=== PATIENT | female | born 1980 | race Caucasian/White ===

== ENCOUNTER 2017-11-27 12:01 | Emergency (ER) | payer MEDICAID, OTHER ==
[2017-11-27 12:48] VITALS: BMI 24.7
[2017-11-27 13:47] VITALS: BP 115/76; RESP 18; O2SAT 99
--- NOTE | 2017-11-27 13:53 | ED PDOC ---
HPI: General Adult Time Seen by Provider: 11/27/17 13:40 Chief Complaint (Nursing): Abdominal Pain History Per: Other (Pt asymptomatic, no c/o at present time. Denies abd pain naisea vomiting or diarrhea. No fevr. Discussed with Dr. Peterson, seen upstairs in Ob. No need for further w/u) Past Medical History Vital Signs: Last Vital Signs Temp 98.5 F 11/27/17 13:46 Pulse 91 H 11/27/17 13:46 Resp 18 11/27/17 13:46 BP 115/76 11/27/17 13:46 Pulse Ox 99 11/27/17 13:46 - Family History Family History: States: Unknown Family Hx - Allergies Allergies/Adverse Reactions: Allergies Allergy/AdvReac Type Severity Reaction Status Date / Time No Known Allergies Allergy Verified 11/27/17 13:40 Physical Exam - Physical Exam Appears: Positive for: Non-toxic, No Acute Distress Skin: Positive for: Normal Color, Warm, DRY Gastrointestinal/Abdominal: Positive for: Bowel Sounds, Soft, Other (gravid). Negative for: Tenderness - ECG O2 Sat by Pulse Oximetry: 99 Disposition - Clinical Impression Clinical Impression: Normal exam - Patient ED Disposition Is Patient to be Admitted: No - Disposition Referrals: Courtney Romero MD [Primary Care Provider] - Disposition: Routine/Home Disposition Time: 13:53 Condition: FAIR Instructions: Gastroenteritis (ED)
[2017-11-27 21:54] VITALS: PULSE 92; TEMP 98.4
--- NOTE | 2017-11-28 07:51 | OBDCSUM ---
Datetime: 11/27/2017 13:08 Follow up at, Provider: main ER Follow up in weeks, Provider: [facility] in 1-2w Discharge Diagnosis Prov Other: diarrhea/prob viral gasrtoenteritits
--- NOTE | 2017-11-28 07:51 | OBHP ---
Datetime: 11/27/2017 12:35 IP Adm Impression: , intrauterine ; No Active Labor IP Chief Complaint Other: diarrhea IP Admit Plan Other: discharge to ER Admit Comment, IP Provider: co diarrhea this morning. IUp at 23+w GDMA2 from [facility] c/o diarrhea since 6am. No SROM. no VB. +FM Prenatla chart rev'd/case discussed with Dr Garay. POBGYNH: denies STD; G1 PMH: GDMA2 - on Glyburide took accuchck this am 87mg/dl PSH denies NKA PSOH: denies smoking ETOH drugs A: IUp at 23w diarrhea cleared by OB send to ER (late entry for Nov 27) Extremities - PN: Normal Abdomen - PN: Normal Lungs - PN: Normal Heart - PN: Normal HEENT - PN: Normal General - PN: Normal FHR - Baseline A Provider: + IP Hx Assessment: The History has been Reviewed and is Current EGA AdmitDate IP: 23.1 Vital Signs Provider: Reviewed; Within Normal Limits IP Chief Complaint: Other
== END 2017-11-27 14:28 | disposition home or self-care (01) ==
LOC: H.ER 12:01
DX: O26.892 Other specified pregnancy related conditions, second trimester (principal); O99.89 Other specified diseases and conditions complicating pregnancy, childbirth and the puerperium; Z3A.23 23 weeks gestation of pregnancy

== ENCOUNTER 2018-01-10 17:14 | Emergency (ER) | payer MEDICAID ==
[2018-01-10 18:46] VITALS: O2SAT 100
--- NOTE | 2018-01-10 19:41 | ED PDOC ---
HPI: General Adult Time Seen by Provider: 01/10/18 19:10 Chief Complaint (Nursing): Cough, Cold, Congestion History Per: Patient History/Exam Limitations: no limitations Onset/Duration Of Symptoms: Hrs, Gradual Have you had recent travel within the past 21 days to any of the following countries: [place], [place], [place] or [place]?: No Current Symptoms Are (Timing): Still Present Severity: Mild Recently: Seen In ED Additional History Per: Patient Additional Complaint(s): 37 y/o 28-week female here this evening complaining of nonproductive cough, rhinorrhea, fever, and ear pain. She also complains of lower rib pain and upper abdominal pain when coughing. Patient denies sick contacts or recent travel. She was seen by L&D this afternoon, cleared, and came to the ED for further evaluation. There are no other complaints at this time. Past Medical History Vital Signs: Last Vital Signs Temp 98.6 F 01/10/18 23:28 Pulse 121 H 01/10/18 23:28 Resp 20 01/10/18 23:28 BP 107/62 01/10/18 23:28 Pulse Ox 100 01/10/18 23:28 - Medical History PMH: No Chronic Diseases - Family History Family History: States: Unknown Family Hx - Immunization History Hx Tetanus Toxoid Vaccination: No Hx Influenza Vaccination: No Hx Pneumococcal Vaccination: No - Home Medications Home Medications: Ambulatory Orders Medication Instructions Recorded Acetaminophen [Pain Reliever] 500 mg PO Q4 #30 tablet 01/10/18 Oseltamivir Phosphate [Tamiflu] 75 mg PO BID 5 Days capsule 01/10/18 - Allergies Allergies/Adverse Reactions: Allergies Allergy/AdvReac Type Severity Reaction Status Date / Time No Known Allergies Allergy Verified 11/27/17 13:40 Review of Systems Constitutional: Positive for: Fever. Negative for: Chills ENT: Positive for: Ear Pain Cardiovascular: Positive for: Chest Pain Respiratory: Positive for: Cough Gastrointestinal: Positive for: Abdominal Pain. Negative for: Nausea, Vomiting Skin: Negative for: Rash Physical Exam - Reviewed Nursing Documentation Reviewed: Yes Vital Signs Reviewed: Yes - Physical Exam Appears: Positive for: Well, Non-toxic, No Acute Distress Head Exam: Positive for: ATRAUMATIC, NORMAL INSPECTION, NORMOCEPHALIC Skin: Positive for: Normal Color, Warm, DRY Eye Exam: Positive for: EOMI, Normal appearance, PERRL ENT: Positive for: Normal ENT Inspection Neck: Positive for: Normal, Painless ROM Cardiovascular/Chest: Positive for: Regular Rate, Rhythm Respiratory: Positive for: CNT, Normal Breath Sounds Gastrointestinal/Abdominal: Positive for: Normal Exam, Bowel Sounds, Soft, Other (Gravid Uterus) Back: Positive for: Normal Inspection Extremity: Positive for: Normal ROM Neurologic/Psych: Positive for: Alert, Oriented - ECG O2 Sat by Pulse Oximetry: 100 (RA) Pulse Ox Interpretation: Normal Medical Decision Making Medical Decision Making: Impression: flu-Like Illness Discussion: Patient is high risk and will be treated with Tamiflu. PAtient is well appearing, advised her to f/u w/ PMD in 1 - 2 days. Return precautions discussed. Scribe Attestation: Documented by Poonam Krishnamurthy, acting as a scribe for Ethan Ballard MD. Provider Scribe Attestation: All medical record entries made by the Scribe were at my direction and personally dictated by me. I have reviewed the chart and agree that the record accurately reflects my personal performance of the history, physical exam, medical decision making, and the department course for this patient. I have also personally directed, reviewed, and agree with the discharge instructions and disposition. Disposition - Clinical Impression Clinical Impression: Influenza-like symptoms - Patient ED Disposition Is Patient to be Admitted: No Doctor Will See Patient In The: Office Counseled Patient/Family Regarding: Diagnosis, Need For Followup, Rx Given - Disposition Referrals: Courtney Romero MD [Primary Care Provider] - Disposition: Routine/Home Disposition Time: 19:43 Condition: STABLE Prescriptions: Acetaminophen [Pain Reliever] 500 mg PO Q4 #30 tablet Oseltamivir Phosphate [Tamiflu] 75 mg PO BID 5 Days capsule Instructions: Flu, Adult (DC) Forms: [employer] (Slovenian)
[2018-01-10 23:29] VITALS: BP 107/62; PULSE 121; RESP 20; TEMP 98.6
--- NOTE | 2018-01-11 10:29 | OBHP ---
Datetime: 01/10/2018 18:10 IP Adm Impression: , intrauterine IP Admit Plan: Observation/Evaluation Admit Comment, IP Provider: Pt is a 37 y/o female G1PO with IUP at 29 wks sent from clinic for upper respiratory tract symptoms and GI distress x1 day. Pt reports having nonproductive cough, congestion , [place] and vomiting since last night. Denies fever. Was found to be tachycardic at 120 in the clini c. Currently denies n/v, sob, cp, le edema, headache, vaginal bleeding, lof, abdominal or pelvic pain . No sick contacts. Received flu shot this season. PNC: Seen at [facility]. GDM on metformin and glyburide. Blood glucose controlled. GBS + OBHx:none PMHX: none Allergies: none Meds: PNV, Metformin, Glyburide PE: General: Comfortable, alert and oriented, no distress. Occasional coughing fit Cardio: Tachycardic, regular rythm, no murmurs Lungs: CTABL, no rales, no wheezing, no use of accessory muscles Abdomen: Gravid, NT FHR: 144, reactive, no decels No contractions on tocometer Assessment: IUP at 29wks presenting with URI symptoms. Tachycardic. Plan: No signs of active labor. FHR observed, category 1. Pt will need further medicine workup. Pr egnancy stable from obgyn persepective. Discussed case with OB Attending, Dr. Ignacia Pickens, PGY1 EGA AdmitDate IP: 29.3 Vital Signs Provider: Reviewed Vital Signs Provider Details: Tachycardia IP Chief Complaint: Illness; Other
== END 2018-01-10 19:58 | disposition home or self-care (01) ==
LOC: H.EROB2 17:14 → H.ER 17:14
DX: R10.9 Unspecified abdominal pain (principal); O26.893 Other specified pregnancy related conditions, third trimester; O99.419 Diseases of the circulatory system complicating pregnancy, unspecified trimester; Z3A.29 29 weeks gestation of pregnancy; Z79.84 Long term (current) use of oral hypoglycemic drugs

== ENCOUNTER 2018-03-18 20:25 | Inpatient (IN) | payer MEDICAID ==
[2018-03-18 22:42] VITALS: BMI 25.4
[2018-03-18] MEDS ORDERED: Lactated Ringer's 1,000 ML IV SCH (22:45)
[2018-03-18] MEDS ORDERED: Oxytocin 30 units/LR 500ML 30 U/500 ML BAG IV SCH (22:45)
[2018-03-18 23:24] LABS: BASO # 0.1 K/uL (0.0-0.2); BASO % 0.5 % (0.0-2.0); EOS # 0.3 K/uL (0.0-0.7); EOS % 2.5 % (0.0-4.0); HEMOGLOBIN 12.6 g/dL (12.0-16.0); LYMPH # 2.4 K/uL (1.0-4.3); LYMPH % 21.5 % (20.0-40.0); MEAN CELL VOLUME 95.3 fl (81.0-99.0); MEAN CORPUSCULAR HEMOGLOBIN 32.5 pg (27.0-31.0); MEAN CORPUSCULAR HGB CONC 34.1 g/dL (33.0-37.0); MONO # 0.8 K/uL (0.0-0.8); MONO % 6.8 % (0.0-10.0); NEUT # 7.7 K/uL (1.8-7.0); NEUT % 68.7 % (50.0-75.0); NRBC % 0.1 % (0.0-0.0); RBC 3.88 Mil/uL (3.80-5.20); RED CELL DISTRIBUTION WIDTH 13.5 % (11.5-14.5); WHITE BLOOD COUNT 11.2 K/uL (4.8-10.8)
[2018-03-18 23:31] LABS: ALB/GLOB RATIO 1.1 (1.0-2.1); ALBUMIN 3.7 g/dL (3.5-5.0); ALT/SGPT 24 U/L (9-52); AST/SGOT 23 U/L (14-36); BLOOD UREA NITROGEN 8 mg/dl (7-17); CALCIUM 10.4 mg/dL (8.4-10.2); GFR AFRICAN-AMERICAN > 60; GFR NON-AFRICAN AMERICAN > 60
[2018-03-18] MEDS: Lactated Ringer's 1,000 ML IV SCH (23:54)
[2018-03-19 03:33] VITALS: O2SAT 100
--- NOTE | 2018-03-19 07:41 | OBADHP ---
Datetime: 03/19/2018 01:06 Pelvic Type - PN: Adequate Extremities - PN: Normal Abdomen - PN: Normal Back - PN: Normal Breast - PN: Normal Lungs - PN: Normal Heart - PN: Normal Thyroid - PN: Normal Neurologic - PN: Normal HEENT - PN: Normal General - PN: Normal FHR - Baseline A Provider: 130 Membranes, Provider: Intact Contraction Comments Provider: no Comments, ACOG Physical Exam: U/S: vertex GBS/HIV/RPR/HepB negative , Rubella immune Vital Signs Provider: Reviewed; Within Normal Limits IP Chief Complaint: Scheduled induction of labor NICHD Variability Prov Fetus A: Moderate 6-25bpm NICHD Accel Fetus A IP Provider: 15X15 FHR Category Provider Fetus A: Category I NICHD Decel Fetus A IP Provider: None Dilatation, Provider: close Effacement, Provider: high Station, Provider: thick Genitourinary Exam: Normal DTRs - PN: Normal EGA AdmitDate IP: 39.1 IP Adm Impression: Term, intrauterine IP Admit Plan: Admit to unit; Initiate labor induction protocol; Observation/Evaluation Datetime: 03/18/2018 23:45 Admit Comment, IP Provider: This is 37 y/o F, , IUP@39.0, JUANA 03/25/18 comes to the [facility] for OLIVE IOL due to AMA and DM. ROS unremarkable Denies LOF/BV/CTX, good FM PNC: [facility] PNI: Diabetes was dig around 13wks of GA HIV/RPR/hep B negatibe PMH: Polydactyly, AMA, B/l breast lumpectomy, DM PSH: Lumpectomy Allg: NKDA Meds: Metformin, ASA, PNV, Iron SH: Denies alcohol, smoking or drug use FH: Denies VS: Reviewed PE: As above A/P: 37 y/o F, , IUP@39.0, JUANA 03/25/18 comes to the [facility] for OLIVE IOL due to AMA and DM - Admit to L_D - Initiate Labor induction protocol - Labs - Cervidil - Glucose check - Serial reevaluations Case discussed with Dr. Turner --- Torres Huber, PGY-1 OB attending addendum Patient seen and examined by me. Agree with above assessment and plan. Glucose monitoring w/ sliding scale.
--- NOTE | 2018-03-19 07:57 | OBHP ---
Datetime: 03/19/2018 01:06 EGA AdmitDate IP: 39.1 (Annotations: Data stored by CPN on behalf of user) Datetime: 03/18/2018 23:45 Admit Comment, IP Provider: This is 37 y/o F, , IUP@39.0, JUANA 03/25/18 comes to the [facility] for OLIVE IOL due to AMA and DM. ROS unremarkable Denies LOF/BV/CTX, good FM PNC: [facility] PNI: Diabetes was dig around 13wks of GA HIV/RPR/hep B negatibe PMH: Polydactyly, AMA, B/l breast lumpectomy, DM PSH: Lumpectomy Allg: NKDA Meds: Metformin, ASA, PNV, Iron SH: Denies alcohol, smoking or drug use FH: Denies VS: Reviewed PE: As above A/P: 37 y/o F, , IUP@39.0, JUANA 03/25/18 comes to the [facility] for OLIVE IOL due to AMA and DM - Admit to L_D - Initiate Labor induction protocol - Labs - Cervidil - Glucose check - Serial reevaluations Case discussed with Dr. Turner --- Torres Huber, PGY-1 OB attending addendum Patient seen and examined by me. Agree with above assessment and plan. Glucose monitoring w/ sliding scale.
--- NOTE | 2018-03-19 09:21 | OBPN ---
Datetime: 03/19/2018 09:10 IP Progress Impression: Reassuring heart rate IP Informed Consent Obtain: Vaginal Delivery; Risks, Benefits and Alternatives Discussed IP Progress Plan: Augmentation; Anticipate Vaginal Delivery Pool Provider: Negative Membranes, Provider: Intact FHR - Baseline A Provider: 140 Presentation-Admit: Vertex IP Progress Note Comment: OB hospitalist note. Sign out rec'd 8am She feels fine. Cervidl came out in the bathroom - accucheck this morning 78mg/dl LAtent phas eof labor PLAN: discussion about IOL, meds, augmentatoin, risks/complicatoins, pain management...agreed to P itocin/SSE NICHD Accel Fetus A IP Provider: 15X15 FHR Category Provider Fetus A: Category I NICHD Variability Prov Fetus A: Moderate 6-25bpm Dilatation, Provider: 2 Effacement, Provider: 75 Station, Provider: -2 NICHD Decel Fetus A IP Provider: None Datetime: 03/19/2018 01:06 Contraction Comments Provider: no Vital Signs Provider: Reviewed; Within Normal Limits
[2018-03-19] MEDS: Lactated Ringer's 1,000 ML IV SCH ×2 (10:00→15:31)
[2018-03-19] MEDS ORDERED: Lactated Ringer's 1,000 ML IV SCH (13:45)
[2018-03-19] MEDS ORDERED: Lidocaine Hydrochloride 5 ML INJ ONE (14:59)
[2018-03-19] MEDS ORDERED: Fentanyl/Bupivacaine HCl 250 ML EPI ONE (15:15)
--- NOTE | 2018-03-19 17:44 | OBPN ---
Datetime: 03/19/2018 17:00 IP Progress Impression: Normal progression of labor; Reassuring heart rate IP Informed Consent Obtain: Vaginal Delivery; Risks, Benefits and Alternatives Discussed IP Procedures: Intrauterine Pressure Catheter IP Progress Plan: Continue present management; Augmentation; Anticipate Vaginal Delivery Pool Provider: Positive Membranes, Provider: Ruptured Amniotic Fluid Color, Provider: Clear Contraction Comments Provider: 2-4m FHR - Baseline A Provider: 140 IP Fetus A Comments: decels x 2 noted but good recovery and iwth each CTX Presentation-Admit: Vertex IP Progress Note Comment: She rec'd epidural and feels good/no pain. She was checked earlier and was 4cm. Active pahse of labor occ decels noted/difficulty moitoring CTX pattern PLAN: IUPC placed to better montior CTX intensity/freq Pitocin at 8miu/h NICHD Accel Fetus A IP Provider: 15X15 FHR Category Provider Fetus A: Category I NICHD Variability Prov Fetus A: Moderate 6-25bpm Dilatation, Provider: 6 Effacement, Provider: 100 Station, Provider: -1
[2018-03-19] MEDS ORDERED: Oxytocin 30 units/LR 500ML 30 U/500 ML BAG IV ONE (18:15)
[2018-03-19] MEDS ORDERED: Lidocaine 2% Inj (20ml) ONE (20:04)
[2018-03-20] MEDS ORDERED: Oxycodone/Acetaminophen 5/325 mg Tab PO PRN ×4 (00:11→04:14)
[2018-03-20] MEDS ORDERED: Lactated Ringer's 1,000 ML IV SCH (02:56)
[2018-03-20 06:39] LABS: BASO # 0.1 K/uL (0.0-0.2); BASO % 0.4 % (0.0-2.0); EOS % 0.1 % (0.0-4.0); HEMOGLOBIN 11.1 g/dL (12.0-16.0); LYMPH # 1.3 K/uL (1.0-4.3); LYMPH % 5.5 % (20.0-40.0); MEAN CELL VOLUME 95.6 fl (81.0-99.0); MEAN CORPUSCULAR HGB CONC 33.4 g/dL (33.0-37.0); MONO # 1.2 K/uL (0.0-0.8); NEUT # 21.1 K/uL (1.8-7.0); PLATELET COUNT 114 K/uL (130-400); RBC 3.47 Mil/uL (3.80-5.20); RED CELL DISTRIBUTION WIDTH 13.4 % (11.5-14.5); WHITE BLOOD COUNT 23.7 K/uL (4.8-10.8)
--- NOTE | 2018-03-20 07:25 | OBDS ---
DELIVERY PERSONNEL Delivery Doctor: Jamie Peterson DO Rn Complex Care: Yari Ricardo RN Anesthesiologist: Kash Resident: Ami Huber MATERNAL INFORMATION Delivery Anesthesia: Local; Epidural Medications in Delivery: Oxytocin Estimated Blood Loss (ml): 200 Placenta Cultured: No Maternal Complications: None Provider Comments: Over intact perineum, of live male at 23:35 pm, Weight 3005gm, 8/9 AP GAR. Right Anterior shoulder was delivered first in a controlled manner after head followed by intelligence specialist ior arm and body. No meconium was noted with amniotic fluid. was bulb suctioned nasopharygeall y and started crying spontaneously. Baby was placed on Mom for Skin to skin contact. Umbilical cord w as clampped and cut. Placenta was delivered intact after uterine massage and repair was done as above . EBL 200cc. Patient and baby remained stable in the delivery room OB Attending: Dr. Peterson --- Torres Huber, PGY-1 OB Hospitalist note: With PGY1, I was in attendance for delivey -agree with PGY1 note [facility] LABOR SUMMARY EDC: 03/25/2018 00:00 No. Babies in Womb: 1 Attempted: No Labor Anesthesia: Epidural LABOR INFORMATION Reason for Induction: Macrosomia Reason for Induction Other: GDM Onset of Labor: 03/19/2018 17:00 Complete Dilatation: 03/19/2018 21:10 Cervical Ripening Agents: Cervidil Oxytocin: Induction Group B Beta Strep: Negative Steroids Given: None Reason Steroids Not Administered: Not Applicable MEMBRANES Membranes Rupture Method: Artificial Rupture of Membranes: 03/19/2018 11:55 Length of Rupture (hrs): 11.67 Amniotic Fluid Color: Clear Amniotic Fluid Amount: Small Amniotic Fluid Odor: Normal STAGES OF LABOR Stage 1 hrs: 4 Stage 1 min: 10 Stage 2 hrs: 2 Stage 2 min: 25 Stage 3 hrs: 0 Stage 3 min: 37 Total Time in Labor hrs: 7 Total Time in Labor min: 12 VAGINAL DELIVERY Episiotomy: None Laceration Extension: Second Degree Laceration Type: Perineal Laceration Repair: Yes Laceration Repair Note: Repair of second degree perineal laceration with two 2-0 vicryl rapid and lo jocelyn lidocaine Initial Vag Sponge Count: 5 Final Vag Sponge Count: 5 Initial Vag Sharps Count: 3 Final Vag Sharps Count: 3 Sponge Count Correct: Yes Sharps Count Correct: Yes BABY A INFORMATION Infant Delivery Date/Time: 03/19/2018 23:35 Method of Delivery: Vaginal Born in Route : No : N/A Forceps: N/A Vacuum Extraction: N/A Shoulder Dystocia : No ASSISTED DELIVERY BABY A Station Vacuum/Forcep Apply: SHOULDER DYSTOCIA BABY A Delivery Date/Time: 03/19/2018 23:35 PRESENTATION/POSITION BABY A Presentation: Cephalic Cephalic Presentation: Vertex Vertex Position: Left Occipital Anterior Breech Presentation: N/A PLACENTA INFORMATION BABY A Placenta Delivery Time : 03/20/2018 00:12 Placenta Method of Delivery: Spontaneous Placenta Status: Delivered SCORES BABY A Heart Rate 1 min: >100 bpm Resp Effort 1 min: Good Cry Reflex Irritability 1 min: Cough or Sneeze or Pulls Away Muscle Tone 1 min: Some Flexion of Extremities Color 1 min: Body [place], Extremities Blue Resuscitation Effort 1 min: Tactile Stimulation SCORE 1 MIN: 8 Heart Rate 5 min: >100 bpm Resp Effort 5 min: Good Cry Reflex Irritability 5 min: Cough or Sneeze or Pulls Away Muscle Tone 5 min: Active Motion Color 5 min: Body [place], Extremities Blue Resuscitation Effort 5 min: Tactile Stimulation SCORE 5 MIN: 9 INFANT INFORMATION BABY A Gestational Age at Delivery: 39.1 Gestational Status: Term Outcome : Liveborn Infant Condition : Stable Infant Sex: Male IDENTIFICATION/MEDS BABY A ID Band Number: [id number] ID Band Location: Left Leg; Left Arm WEIGHT/LENGTH BABY A Birthweight (gms): 3005 Weight (lb): 6 Infant Weight (oz): 10 CORD INFORMATION BABY A No. Cord Vessels: 3 Nuchal Cord : N/A Cord Blood Taken: Yes Infant Suction: Nose ASSESSMENT BABY A Complications: None Physical Findings at Delivery: Caput Succedaneum Respirations: Appears Normal Mobile Marketing Specialist/ALS Called : No Infant Care By: Jamie Mike RN Transferred To: Remains with Mother
--- NOTE | 2018-03-20 07:27 | OBPN ---
Datetime: 03/19/2018 22:00 IP Progress Impression: Normal progression of labor; Non-reassuring heart rate IP Informed Consent Obtain: Vaginal Delivery IP Progress Plan: Continue present management FHR - Baseline A Provider: 130 IP Progress Note Comment: S: Patient was checked at 9 pm, patient was c/o pain but denies any nausea or vomiting O: Stable VS PE: fully dil A/P: Will continue with current management will start pushing Discussed with Dr. Peterson --- Torres Huber, PGY-1 OB Hospitalist note: Pt seen Mar 19 -agree with PGY1 note [facility]O Vital Signs Provider: Reviewed; Within Normal Limits NICHD Accel Fetus A IP Provider: 15X15 FHR Category Provider Fetus A: Category I NICHD Variability Prov Fetus A: Moderate 6-25bpm Dilatation, Provider: 10 Effacement, Provider: 100 Station, Provider: 1 NICHD Decel Fetus A IP Provider: None
[2018-03-20 09:12] LABS: BANDS 12 % (0-2); LYMPHOCYTE 7 % (20-50); MONOCYTE 4 % (0-10); NEUTROPHIL 76 % (42-75); PLATELET ESTIMATE DECREASED (NORMAL); REACTIVE LYMPHOCYTES 1 % (0-0); TOTAL CELLS COUNTED 100
[2018-03-20 09:13] LABS: HYPOCHROMIC SLIGHT
--- NOTE | 2018-03-20 10:11 | OBPPN ---
Datetime: 03/20/2018 06:09 PP Pain Prov: Within normal limits PP Nausea Prov: Denies PP Flatus Prov: No PP BM Prov: No PP Heart Prov: Normal PP Lungs Prov: Normal PP Abdomen/Uterus Prov: Normal PP Lochia Prov: Normal PP Extremities Prov: Normal PP Comments Phys Exam Prov: Bottle feeding Accu check Continue Metformin PP Impression Prov: Normal progression PP Plan Prov: Continue present management PP Progress Note Prov: S: 37 YO F , PPD1, s/p NVD on 03/19/18 at 23:35, gave to a healthy b lj boy. Patient seen and examined this morning at bedside. No acute overnight events. Well controlle d abdominal pain. Patient is tolerating PO intake, Denies BM, passing gas or voiding yet. Patient was encouraged to ambulate, Bleeding has improved since delivery. Patient is bottle feeding the baby due to previous surgeries for b/l breast lumpectomy. Denies chest pain, dyspnea, n/v, fever/chills, diar jazzy, nausea/vomiting, and calf pain. O: VS: wnl, afebrile GEN: Awake, alert and verbally responsive HEENT: EOMI, moist mucosa. LUNGS: CTA B/L, no wheezing, rhonchi, or rales CVS: RRR, S1, S2 no murmurs ABD: ND, +BS, soft abdomen, firm fundus, below umbilicus. EXT: No edema, neg calf tenderness NEURO/PSYCHI: AAOx3, no grossly focal deficit, preserved affect and mood. A/P: 37 YO F , PPD1, s/p NVD on 03/19/18 at 23:35. Pt remains afebrile, good PO intake. Doing well o n PPD1. -C/w regular diet as tolerated. -OOB with caution -Ibuprofen and Percocet for pain prn -Follow up PP CBCs -C/w [place] for constipations -C/w Metformin 500 BID PP -Encourage early ambulation -AccuCheck -Metformin 500mg BID Torres Huber, PGY-1 9:23 03/20/18: Pts labs were reviewed. CBC sig for WBC 23.7 with bandemia (12). Pt remains afebrile , vitals wnl. Will continue to monitor vitals at this time. Platelets low at 114, will d/c motrin and start tylenol for pain as needed. Lab findings discussed with attending Dr. Peterson. Corry Correia, PGY I 10:06 am Agree with above note by PGY1. Will repeat CBC this afternoon to assess the trend and continue to monitor vitals. Patient pregestational Diabetic. Continue Metformin BID and ADA diet. Will continue c urrent management Dr. Romero IP PP Procedures: None Vital Signs Provider PP: Reviewed; Within Normal Limits
[2018-03-20 12:26] LABS: BASO # 0.1 K/uL (0.0-0.2); BASO % 0.5 % (0.0-2.0); EOS # 0.1 K/uL (0.0-0.7); EOS % 0.6 % (0.0-4.0); HEMOGLOBIN 11.2 g/dL (12.0-16.0); LYMPH # 2.6 K/uL (1.0-4.3); LYMPH % 11.2 % (20.0-40.0); MEAN CELL VOLUME 94.9 fl (81.0-99.0); MEAN CORPUSCULAR HEMOGLOBIN 32.7 pg (27.0-31.0); MEAN CORPUSCULAR HGB CONC 34.5 g/dL (33.0-37.0); MEAN PLATELET VOLUME 10.7 fl (7.2-11.7); MONO # 1.3 K/uL (0.0-0.8); MONO % 5.6 % (0.0-10.0); NEUT # 19.1 K/uL (1.8-7.0); NEUT % 82.1 % (50.0-75.0); NRBC % 0.1 % (0.0-0.0); RBC 3.43 Mil/uL (3.80-5.20); RED CELL DISTRIBUTION WIDTH 13.4 % (11.5-14.5); WHITE BLOOD COUNT 23.2 K/uL (4.8-10.8)
[2018-03-21 07:43] LABS: BASO % 0.2 % (0.0-2.0); EOS # 0.3 K/uL (0.0-0.7); EOS % 1.5 % (0.0-4.0); HEMOGLOBIN 9.6 g/dL (12.0-16.0); LYMPH # 2.3 K/uL (1.0-4.3); LYMPH % 11.9 % (20.0-40.0); MEAN CELL VOLUME 96.2 fl (81.0-99.0); MEAN CORPUSCULAR HEMOGLOBIN 32.6 pg (27.0-31.0); MEAN CORPUSCULAR HGB CONC 33.9 g/dL (33.0-37.0); MEAN PLATELET VOLUME 10.6 fl (7.2-11.7); MONO # 0.9 K/uL (0.0-0.8); NEUT # 15.5 K/uL (1.8-7.0); NEUT % 81.4 % (50.0-75.0); PLATELET COUNT 105 K/uL (130-400); RBC 2.94 Mil/uL (3.80-5.20); RED CELL DISTRIBUTION WIDTH 13.8 % (11.5-14.5)
[2018-03-21 09:00] LABS: BANDS 3 % (0-2); BASOPHIL 1 % (0-2); EOSINOPHIL 1 % (0-7); LYMPHOCYTE 11 % (20-50); MONOCYTE 5 % (0-10); NEUTROPHIL 79 % (42-75); PLATELET ESTIMATE SLIGHTLY DECREASED (NORMAL); TOTAL CELLS COUNTED 100
[2018-03-21 09:01] LABS: HYPOCHROMIC SLIGHT; LARGE PLATELETS PRESENT
--- NOTE | 2018-03-21 11:16 | OBPPN ---
Datetime: 03/21/2018 05:58 PP Pain Prov: Within normal limits PP Nausea Prov: Denies PP Flatus Prov: No PP BM Prov: No PP Heart Prov: Normal PP Lungs Prov: Normal PP Abdomen/Uterus Prov: Normal PP Lochia Prov: Normal PP CVA Tenderness Prov: Normal PP Extremities Prov: Normal PP C/S Incision Prov: Not Applicable PP Progress Prov: Not Applicable PP Comments Phys Exam Prov: Bottle feeding PP Impression Prov: Normal progression PP Plan Prov: Continue present management PP Progress Note Prov: S: 37 YO F , PPD2, s/p NVD. Patient seen and examined this morning at bed side. Denies any acute event overnight, reports good appetite, ambulating, voiding, denies BM or pass ing gas yet. Bleeding has improved since delivery. Patient is bottle feeding the baby due to previous surgeries for b/l breast lumpectomy. Denies chest pain, dyspnea, n/v, fever/chills, diarrhea, nausea /vomiting, urinary frequency, dysuria and calf pain. O: VS: wnl, afebrile GEN: Awake, alert and verbally responsive HEENT: EOMI, moist mucosa. LUNGS: CTA B/L, no wheezing, rhonchi, or rales CVS: RRR, S1, S2 no murmurs ABD: ND, +BS, soft abdomen, firm fundus, below umbilicus. EXT: No edema, neg calf tenderness NEURO/PSYCHI: AAOx3, no grossly focal deficit, preserved affect and mood. A/P: 37 YO F , PPD2, s/p NVD on 03/19/18 at 23:35. Pt remains afebrile, good PO intake. Doing well o n PPD2. -C/w regular diet as tolerated. -OOB with caution -Ibuprofen and Percocet for pain prn -C/w [place] for constipations -Encourage early ambulation -AccuCheck -Metformin 500mg BID -WBC 23.7 with bandemia 12 on 03/20, pt has remained afebrile and asymptomatic -Follow up CBC today -Follow up appt on 04/25/18, follow up for baby in 2-3 days -Anticipated discharge today -Patient is aware and all the questions were answered @ 9:11; cbc reviewed; wbc is downtrending at 19 (from 23.2) and bandemia is down to 3 (from 12). P t reamins asymptomatic and afebrile. Will d/c pt home today with follow up. Corry Correia, PGY I IP PP Procedures: None Vital Signs Provider PP: Reviewed; Within Normal Limits
--- NOTE | 2018-03-21 16:07 | OBDCSUM ---
Datetime: 03/21/2018 06:01 Discharged to, Provider: Home Follow up at, Provider: [facility] Disch Instr Activity: Normal activity; May be up to bathroom; May be up for meals; May Shower Disch Instr Diet: Regular Discharge Instructions, Provider: Routine instructions given Discharge Diagnosis, Provider: Term Delivered Discharge Time: 03/21/2018 13:00 Follow up in weeks, Provider: PP on 04/25/18, Peds in 2 to 3 days Disch Referrals: None Contraception discussed, Prov: Yes Disch Activity Restrictions: No lifting; No sexual activity; Nothing in vagina - [place], tampon s, douche Discharge Comment, Provider: 37 YO F , PPD2, s/p NVD on 03/19/18 at 23:35, gave to a health y baby boy. of 9/9 and weight of 3005g. period was complicated by elevated wbc with bands, but remained asymptomatic, follow up wbc downtrending with improvement of bandemia. Pt is tole rating diet, pain is well controlled, and ambulating without difficulties. Discharge Instructions: 1.Encourage and ambulation 2.PNV 1 tab po daily 3. Tylenol for mild-mod pain and colace for constipation and Percocet 4.Continue metformin BID and check sugars BID, please bring sugar log to next apt 5.ER precautions: If excessive bleeding or fever without relief from medication, go to ED 6.F/U in [facility] on 04/25/18 and follow up in 2-3 days for baby. Corry Correia, PGY I Agree with above note. Patient scheduled for follow with me in [address] Romero
[2018-03-21 22:40] VITALS: BP 108/72; PULSE 94; RESP 20; TEMP 97.8
== END 2018-03-21 18:25 | disposition home or self-care (01) | DRG 372 ==
LOC: H.EROB2 20:25 → H.L&D 22:42 → H.OB/GYN 03-20 02:20
PROVIDERS: ADMIT Obstetrics & Gynecology; ATTEND Obstetrics & Gynecology
PROC: 10E0XZZ Delivery of Products of Conception, External Approach (ICD-10-PCS; principal; 2018-03-18)
PROC: 0KQM0ZZ Repair Perineum Muscle, Open Approach (ICD-10-PCS; 2018-03-18)
PROC: 4A1HXCZ Monitoring of Products of Conception, Cardiac Rate, External Approach (ICD-10-PCS; 2018-03-18)
DX: O76 Abnormality in fetal heart rate and rhythm complicating labor and delivery (principal); O24.92 Unspecified diabetes mellitus in childbirth; O70.1 Second degree perineal laceration during delivery; Z37.0 Single live birth; Z3A.39 39 weeks gestation of pregnancy; Z79.84 Long term (current) use of oral hypoglycemic drugs; D72.825 Bandemia